=== PATIENT | male | born 1960 | race Caucasian/White ===

== ENCOUNTER 2017-12-02 22:25 | Emergency (ER) | payer OTHER, MEDICAID ==
[~2017-12-02] VITALS: Ht 170.2 cm; Wt 82.6 kg
[2017-12-02 23:15] VITALS: BP 129/79
[2017-12-03] MEDS ORDERED: cefTRIAXone SOD 1,000 MG VL IM ONE
[2017-12-03] MEDS ORDERED: TETANUS-DIPTH-ACEL PERTUSSIS 0.5ML SYRG IM ONE
[2017-12-03] MEDS ORDERED: LIDOCAINE 2% (LOCAL ANESTH.) PF 5ml SDV IJ ONE (00:15)
[2017-12-03] MEDS ORDERED: LIDOCAINE W/ EPINEPHRINE 2% INJ 20ML VIAL IJ ONE (00:15)
== END 2017-12-03 01:15 | disposition home or self-care (01) ==
LOC: ER 22:25
DX: S81.812A Laceration without foreign body, left lower leg, initial encounter (principal); F17.210 Nicotine dependence, cigarettes, uncomplicated; I11.0 Hypertensive heart disease with heart failure; I50.9 Heart failure, unspecified; Z90.49 Acquired absence of other specified parts of digestive tract; W26.8XXA Contact with other sharp object(s), not elsewhere classified, initial encounter; Y93.01 Activity, walking, marching and hiking; Y99.8 Other external cause status; Y92.89 Other specified places as the place of occurrence of the external cause
CPT/HCPCS: 12002; 96372; 99283; J0696; 90715

== ENCOUNTER 2019-01-13 09:29 | Emergency (ER) | payer OTHER, MEDICAID ==
[~2019-01-13] VITALS: Ht 170.2 cm; Wt 86.2 kg
[2019-01-13 10:14] LABS: Basophils # (auto) 0.1 uL; Basophils % (auto) 0.7 % (0.0-2.0); Eosinophils # (auto) 0.1 uL; Hematocrit 45.6 % (41.0-53.0); Hemoglobin 15.5 g/dL (13.5-17.5); Lymphocytes # (auto) 1.3 uL; Lymphocytes % (auto) 12.2 % (10.0-50.0); Mean Corpuscular Hemoglobin 29.6 pg (28.0-32.0); Mean Corpuscular Hgb Conc. 33.9 g/dL (32.0-36.0); Mean Corpuscular Volume 87.2 fL (80.0-100.0); Monocytes # (auto) 0.8 uL; Neutrophils # (auto) 8.2 uL; Neutrophils % (auto) 78.1 % (37.0-80.0); Platelet Count (auto) 310 10^3/uL (140-450); Red Blood Cells 5.23 10^6/uL (4.5-5.90); Red Cell Distribution Width 14.2 % (11.8-14.3); White Blood Cell 10.5 10^3/uL (4.4-10.8)
[2019-01-13 10:17] LABS: Urine WBC None Seen /hpf (0 - 3)
[2019-01-13 10:24] LABS: Urine Amorphous Crystal MANY /hpf (None Seen); Urine Bacteria NONE SEEN /hpf (None Seen); Urine Blood 2+ /uL (Negative); Urine Mucus MANY (None Seen); Urine Specific Gravity 1.038 (1.001-1.035)
[2019-01-13 10:29] LABS: Calcium 9.3 mg/dL (8.5-10.1); Potassium 4.1 mmol/L (3.5-5.1)
[2019-01-13 10:33] LABS: Albumin 3.9 g/dL (3.4-5.0); BUN/Creatinine Ratio 9.8
[2019-01-13 10:36] LABS: Bilirubin, Total 0.7 mg/dL (0.2-1.0); Total Protein 7.8 g/dL (6.4-8.2)
[2019-01-13] MEDS ORDERED: SODIUM CHLORIDE 0.9% 500 ML IVB ONE (10:54)
[2019-01-13] MEDS ORDERED: ONDANSETRON HCL 4 MG/2 ML VIAL IV ONE (11:00)
[2019-01-13] MEDS ORDERED: MORPHINE SULFATE 4 MG/ML SYR/VIAL IV ONE (11:00)
[2019-01-13 11:03] VITALS: BP 112/61
[2019-01-13 11:12] LABS: Magnesium 2.3 mg/dL (1.6-2.6)
== END 2019-01-13 12:32 | disposition home or self-care (01) ==
LOC: ER 09:29
DX: N20.1 Calculus of ureter (principal); I25.10 Atherosclerotic heart disease of native coronary artery without angina pectoris; I50.9 Heart failure, unspecified; J44.9 Chronic obstructive pulmonary disease, unspecified; F17.210 Nicotine dependence, cigarettes, uncomplicated; Z90.49 Acquired absence of other specified parts of digestive tract; Z90.89 Acquired absence of other organs
CPT/HCPCS: 36415; 74176; 80053; 81001; 83690; 83735; 85025; 93005; 94761; 96374; 96375; 99284; J2270; J2405; J7040

== ENCOUNTER → 2024-01-09 | Outpatient (CLI) | payer OTHER, MEDICAID ==
[~2024-01-09] MED LIST: ASPI-543 PO; ATOR-507 PO; CLOP75TA28 PO; CYAN100088 PO; EMPA1TAB PO; FURO20TA3 PO; METF-929 PO; METO-289 PO; MONT10TA23 PO; OMEG-28 PO; PANT40T PO; SACU1TAB PO; SOTA80TA PO; UMEC1AER IN; VARE1TAB11 PO
[2024-01-09 07:58] VITALS: BP 111/67
[2024-01-09] MEDS: DOBUTamine 1000MCG/ML 100 ML IV ONE (07:58)
[2024-01-09] MEDS: DOBUTamine 1000MCG/ML 250 ML IV ONE (08:25)
[2024-01-09] MEDS: ATROPINE SULF 0.5 MG/5ML SYR ONE (09:43)
[2024-01-09] MEDS: METOPROLOL TARTRATE 1MG/1ML-5ML VIAL IV ONE (09:44)
== END | disposition home or self-care (01) ==
LOC: XYW 01-03 10:25
PROVIDERS: ATTEND Specialist
DX: I35.0 Nonrheumatic aortic (valve) stenosis (principal); I11.0 Hypertensive heart disease with heart failure; I50.9 Heart failure, unspecified; I42.9 Cardiomyopathy, unspecified; Z79.82 Long term (current) use of aspirin; Z79.899 Other long term (current) drug therapy; Z95.5 Presence of coronary angioplasty implant and graft
CPT/HCPCS: 93017; 93350; J1250; J0461

== ENCOUNTER 2024-09-01 19:16 | Emergency (ER) | payer OTHER, MEDICAID ==
[~2024-09-01] VITALS: Ht 170.2 cm; Wt 83.5 kg
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
[2024-09-01 20:05] VITALS: BP 132/67; PULSE 82; RESP 17; TEMP 98.2; O2SAT 93
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
== END 2024-09-01 22:38 | disposition home or self-care (01) ==
LOC: ER 19:16
DX: S20.219A Contusion of unspecified front wall of thorax, initial encounter (principal); S60.00XA Contusion of unspecified finger without damage to nail, initial encounter; S00.33XA Contusion of nose, initial encounter; S60.512A Abrasion of left hand, initial encounter; M43.12 Spondylolisthesis, cervical region; I25.10 Atherosclerotic heart disease of native coronary artery without angina pectoris; J44.9 Chronic obstructive pulmonary disease, unspecified; I50.9 Heart failure, unspecified; Z90.49 Acquired absence of other specified parts of digestive tract; Z90.89 Acquired absence of other organs; F17.210 Nicotine dependence, cigarettes, uncomplicated; Z79.82 Long term (current) use of aspirin; Z79.84 Long term (current) use of oral hypoglycemic drugs; Z79.899 Other long term (current) drug therapy; Z79.02 Long term (current) use of antithrombotics/antiplatelets; V89.2XXA Person injured in unspecified motor-vehicle accident, traffic, initial encounter; Y93.89 Activity, other specified; Y92.410 Unspecified street and highway as the place of occurrence of the external cause; Y99.8 Other external cause status
CPT/HCPCS: 70486; 71250; 72125; 73130